=== PATIENT | male | born 1975 | race Caucasian/White ===

== ENCOUNTER 2022-01-30 14:30 | Emergency (ER) | payer OTHER, SELFPAY ==
[2022-01-30 14:33] VITALS: BP 148/103; PULSE 80; RESP 16; TEMP 36.6; O2SAT 98; BMI 28.7
--- NOTE | 2022-01-30 15:11 | CT_ITS ---
STUDY: CT CERVICAL SPINE WITHOUT CONTRAST REASON FOR EXAM: Male, 46 years old. Trauma, head injury today RADIATION DOSAGE (If Supplied By Facility): CTDIvol = ( 26.17 ) mGy, DLP = ( 635.74 ) mGycm TECHNIQUE: High resolution transaxial imaging was performed without contrast material. Sagittal and coronal images were reconstructed. Individualized dose optimization techniques were used for this CT. COMPARISON: None FINDINGS: Normal craniovertebral junction. Normal anterior atlantoaxial articulation. Normal odontoid process. Normal cervical lordosis. Normal vertebral bodies and posterior osseous elements. C2-3: Mild degree of disc space narrowing. Anterior spondylosis. C3-4: Mild degree of disc space narrowing. Anterior spondylosis and uncovertebral arthrosis. No significant spinal stenosis is seen. C4-5: Mild degree of disc space narrowing. Anterior spondylosis. Uncovertebral arthrosis worse on the right side causing a mild degree right neural foraminal stenosis. C5-6: Anterior spondylosis is worse on the right side. Facet joint hypertrophy more prominent on the left side. No significant stenosis seen. C6-7: Mild degree of disc space narrowing. Spondylosis. No significant stenosis is seen. C7-T1: Normal endplates. Normal disc height and morphology. Normal central canal and intervertebral neuroforamina. Normal visualized soft tissue structures. CT/Spine Cervical without Contras IMPRESSION: Multilevel degenerative changes, as described above. Electronically Signed: Ryne Tate MD at 15:42 EDT ,
--- NOTE | 2022-01-30 15:11 | CT_ITS ---
STUDY: CT BRAIN WITHOUT CONTRAST REASON FOR EXAM: Male, 46 years old. Trauma, head injury, wound to left eyebrow RADIATION DOSAGE (If Supplied By Facility): CTDIvol = ( 44.99 ) mGy, DLP = ( 779.24 ) mGycm TECHNIQUE: Transaxial CT imaging of the brain was performed without administration of intravenous contrast material. Individualized dose optimization techniques were used for this CT. COMPARISON: No relevant priors. FINDINGS: Normal soft tissue structures. Normal calvarium. Normal size ventricles and extra-axial spaces for the patient''s age. Normal white matter tracts of the cerebral hemispheres. Normal basal ganglia and thalami. Normal brainstem. Normal cerebellum. There is no intracranial hemorrhage. There are no findings of an acute ischemic infarction. Normal visualized paranasal sinuses. CT/Brain/Head without Contrast IMPRESSION: Normal unenhanced CT scan of the brain. Electronically Signed: Ryne Tate MD at 15:41 EDT ,
--- NOTE | 2022-01-30 15:28 | EDS_ITS ---
HPI History of Present Illness Chief Complaint: Laceration Informant: patient Onset/Context/Timing Onset: Today Location: Left eyebrow Narrative Narrative: Patient presents secondary to left eyebrow laceration. He was at work using a pry bar. It slipped and he hit his head against a boom for machine. He does complain of some mild left-sided neck pain. 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 No loss of consciousness. He states his last tetanus shot was 3 years ago. Tetanus Immunization: <5 years [facility] Medical History DVT (deep venous thrombosis) Hypertension Rheumatoid arthritis Allergy/AdvReac Type Severity Reaction Status Date / Time No Known Allergies Allergy Verified 01/30/22 14:36 Social History Smoking Status: Never smoker ROS ROS ED Constitutional Constitutional ED: Denies chills or fever(s) Eyes Eyes: Denies change in vision ENT ENT ED: Denies sore throat Cardiovascular Cardiovascular: Denies chest pain Respiratory/Chest Respiratory/Chest: Denies cough or dyspnea Gastrointestinal Gastrointestinal: Denies abdominal pain, nausea or vomiting Musculoskeletal Musculoskeletal: Reports neck pain; Denies back pain Integumentary Denies rash Neurologic Neurologic: Reports headache(s); Denies weakness Psychiatric Psychiatric: Denies anxiety or depression Allergic/Immunologic Allergic/Immunologic ED: Denies urticaria EXAM Physical Exam Const Vital Signs: 01/30/22 14:33 Temperature 97.9 F Temperature Source Temporal Pulse Rate 80 Respiratory Rate 16 Blood Pressure 148/103 H Blood Pressure Mean 118 Pulse Ox 98 Oxygen Delivery Method Room Air Positive well nourished and well developed General Appearance ED: well developed HEENT HEENT Narrative: 4 cm flap laceration to the left eyebrow. Bleeding controlled at this time. Eyes PERRL and EOMs intact bilaterally Neck full ROM Neck Narrative: Tenderness in the left cervical paraspinal muscles. No midline tenderness Chest Wall inspection of chest normal and palpation of chest normal Resp normal respiratory effort and clear to auscultation bilaterally Cardio regular rhythm Rate: regular rate GI non-tender Palpation: soft Back/Spine normal to inspection Extremity normal to inspection and full ROM Neuro oriented x3, CN's II-XII intact bilaterally and moves all extremities Sensorium / Orientation: alert Psych mental status grossly normal PROC Procedures Lacerations Left eyebrow laceration: Length: 1.57 in Depth: Sub Q Shape: Flap Prep: Shure-Clens Laceration repair: Lidocaine (2.5 cc 1% lidocaine) and Local Number of Sutures/Jacoby: 6 Suture Information: Ethilon, Simple and 5-0 MDM MDM MDM Narrative Medical decision making narrative: Patient sent for CT scan of the head and C- spine given his history of rheumatoid arthritis and use of Xarelto. Radiography Diagnostic Testing: Clinical Impression(s) from Imaging Studies Brain CT 01/30/22 15:11 IMPRESSION: Normal unenhanced CT scan of the brain. Electronically Signed: Ryne Tate MD at 15:41 EDT , Cervical Spine CT 01/30/22 15:11 IMPRESSION: Multilevel degenerative changes, as described above. Electronically Signed: Ryne Tate MD at 15:42 EDT , Treatment and Re-Evaluation Narrative: CT scans reveal chronic changes only. Left forehead laceration is anesthetized with lidocaine and repaired with 5-0 simple sutures. Please see procedure note for details. Patient is to have sutures removed in 5 days. Wound care instructions provided. Discharge Plan Triage Chief Complaint: Laceration ED Provider: Erin Girard Dx/Rx/DC Orders Clinical Impression: Closed head injury, Facial laceration Instructions: ED Head Injury (Adult), ED Laceration Face Suture or ... Stand Alone Forms: Work Status Form Referrals: KAMRAN MENSAH [Other] Corporate,Care [GROUP OF PHYSICIANS] - 5 Days for suture removal Disposition Disposition: Home, Self Care
[2022-01-30] MEDS: Lidocaine 1% (20 ml mdv) 20 ML Vial INFILT (16:27)
== END 2022-01-30 16:28 | disposition home or self-care (01) ==
PROVIDERS: Emergency Provider Emergency Medicine; Visit Provider Emergency Medicine
DX: S01.81XA Laceration without foreign body of other part of head, initial encounter (principal); W22.09XA Striking against other stationary object, initial encounter; Y93.89 Activity, other specified; Y99.0 Civilian activity done for income or pay; Z79.01 Long term (current) use of anticoagulants; Z86.718 Personal history of other venous thrombosis and embolism
CPT/HCPCS: 12013; 70450; 72125; 99283